=== PATIENT | female | born 2000 | race Caucasian/White ===

== ENCOUNTER 2022-05-10 14:50 | Emergency (ER) | payer MEDICAID ==
[~2022-05-10] VITALS: Ht 162.6 cm; Wt 59.0 kg
[2022-05-10 14:54] VITALS: BP 115/71
== END 2022-05-10 22:02 | disposition left against medical advice (07) ==
LOC: ER 14:50
DX: Z53.21 Procedure and treatment not carried out due to patient leaving prior to being seen by health care provider (principal)

== ENCOUNTER 2022-05-14 00:11 | Emergency (ER) | payer MEDICAID ==
[~2022-05-14] VITALS: Ht 165.1 cm; Wt 77.0 kg
[2022-05-14 00:45] VITALS: BP 125/68
[2022-05-14] MEDS ORDERED: CEFTRIAXONE SODIUM 500 MG/VIAL IM ONE (06:30)
[2022-05-14] MEDS ORDERED: DOXY100C5 MT (07:09)
== END 2022-05-14 08:27 | disposition home or self-care (01) ==
LOC: ER 00:11
DX: Z00.00 Encounter for general adult medical examination without abnormal findings (principal); Z88.6 Allergy status to analgesic agent; Z88.8 Allergy status to other drugs, medicaments and biological substances
CPT/HCPCS: 99283; J0696; Z7610

== ENCOUNTER 2022-08-14 17:09 | Emergency (ER) | payer MEDICAID ==
[~2022-08-14] VITALS: Ht 167.6 cm; Wt 73.0 kg
[~2022-08-14 17:09] MED LIST: DOXY100C5 MT
[2022-08-14 17:15] VITALS: BP 122/86
[2022-08-14] MEDS ORDERED: BACITRACIN 15GM TUBE TOP ONE (19:30)
[2022-08-14] MEDS ORDERED: TETANUS AND DIPHTHERIA TOX/PF 0.5ML SYR (ADULT) IM ONE (19:30)
[2022-08-14] MEDS ORDERED: CEPH500C2 MT (20:40)
[2022-08-14] MEDS ORDERED: IBUP-2028 MT (20:40)
[2022-08-14] MEDS ORDERED: TETANUS, DIPHTHERIA, PERTUSSIS VAC/PF 0.5ML (>10YR OLD) IM ONE (21:15)
[2022-08-14] MEDS ORDERED: BACITRACIN ZINC OINT UDPKT TOP NR (21:15)
== END 2022-08-14 21:28 | disposition home or self-care (01) ==
LOC: ER 17:09
DX: S80.11XA Contusion of right lower leg, initial encounter (principal); X58.XXXA Exposure to other specified factors, initial encounter; Y93.89 Activity, other specified; Y92.89 Other specified places as the place of occurrence of the external cause; Y99.8 Other external cause status
CPT/HCPCS: 73560; 73590; 90471; 90714; 90715; 99284

== ENCOUNTER 2022-11-22 16:09 | Emergency (ER) | payer MEDICAID ==
[~2022-11-22] VITALS: Ht 165.1 cm; Wt 73.0 kg
[~2022-11-22 16:09] MED LIST changes: +BO1 TP; +CEPH500C2 MT; +CEPH500C2 PO; +IBUP-2028 MT; +NAPR-681 PO; +SULF1TAB48 MT
[2022-11-22 17:07] VITALS: BP 121/68
== END 2022-11-22 21:50 | disposition home or self-care (01) ==
LOC: ER 16:09
DX: S02.2XXA Fracture of nasal bones, initial encounter for closed fracture (principal); S06.9XAA Unspecified intracranial injury with loss of consciousness status unknown, initial encounter; V49.9XXA Car occupant (driver) (passenger) injured in unspecified traffic accident, initial encounter; Y93.89 Activity, other specified; Y92.89 Other specified places as the place of occurrence of the external cause; Y99.8 Other external cause status
CPT/HCPCS: 70486; 81025; 99284